=== PATIENT | male | born 1980 | race Caucasian/White ===

== ENCOUNTER 2017-08-27 18:07 | Emergency (ER) | payer OTHER ==
[~2017-08-27] VITALS: Ht 165.1 cm; Wt 70.3 kg
[2017-08-27 18:47] LABS: INFLUENZA A ANTIGEN None Detected (None Detect); INFLUENZA B ANTIGEN None Detected (None Detect)
[2017-08-27 18:55] LABS: HEMOGLOBIN 15.9 gm/dL (14.0-18.0); MCH 30.4 pg (26.0-34.0); MCHC 34.6 g/dL (28.0-37.0); MCV 87.8 fL (80.0-100.0); MPV 8.9 fl. (7.2-11.1); NUCLEATED RBCS 0 /100WBC; PLATELET COUNT* 156 thou/uL (150-400); RBC 5.25 mil/uL (4.50-6.00); RDW-CV 12.8 % (10.5-14.5); WBC 7.7 thou/uL (4.0-11.0)
[2017-08-27 18:59] LABS: CALCIUM 9.2 mg/dL (8.5-10.1); CREATININE 1.2 mg/dL (0.6-1.3); POTASSIUM 3.4 mmol/L (3.5-5.1)
[2017-08-27 19:04] LABS: ALBUMIN 4.3 g/dL (3.4-5.0); TOTAL BILIRUBIN 0.7 mg/dL (<0.1-1.0); TOTAL PROTEIN 7.5 g/dL (6.4-8.2)
[2017-08-27 19:17] LABS: ABSOLUTE LYMPHOCYTES 0.2 thou/uL (0.8-5.3); ABSOLUTE MONOCYTES 0.4 thou/uL (0.0-1.2); ABSOLUTE NEUTROPHILS 7.1 thou/uL (1.6-8.1)
[2017-08-27 19:18] LABS: LARGE PLATELETS RARE; PLATELET ESTIMATE ADEQUATE
[2017-08-27] MEDS ORDERED: ZOFRAN4 MG PO (19:53)
[2017-08-27] MEDS ORDERED: PROAIR HFA8.5 GM INH (19:54)
[2017-08-27 20:05] VITALS: BP 109/44
== END 2017-08-27 20:06 | disposition home or self-care (01) ==
LOC: M.ERS 18:07
PROVIDERS: Nurse Practitioner Family
DX: B34.9 Viral infection, unspecified (principal); Z90.49 Acquired absence of other specified parts of digestive tract

== ENCOUNTER 2020-02-15 18:05 | Observation (INO) | payer OTHER ==
[~2020-02-15] VITALS: Ht 167.6 cm; Wt 77.6 kg
[~2020-02-15 18:05] MED LIST: PROAIR HFA8.5 GM INH; ZOFRAN4 MG PO
[2020-02-15 18:17] VITALS: BP 135/81
[2020-02-15] MEDS ORDERED: BACTRIM DS TAB1 EAC1 PO (18:23)
[2020-02-15] MEDS ORDERED: DORYX MPC120 MG PO (18:23)
[2020-02-15 18:55] LABS: ABSOLUTE BASOPHILS 0.1 thou/uL (0.0-0.2); ABSOLUTE EOSINOPHILS 0.1 thou/uL (0.0-0.7); ABSOLUTE LYMPHOCYTES 1.1 thou/uL (0.8-5.3); ABSOLUTE MONOCYTES 0.8 thou/uL (0.0-1.2); ABSOLUTE NEUTROPHILS 8.9 thou/uL (1.6-8.1); BASOPHILS 0.6 %; EOSINOPHILS 0.6 %; HEMATOCRIT 45.5 % (42.0-52.0); HEMOGLOBIN 16.1 gm/dL (14.0-18.0); MCH 32.4 pg (26.0-34.0); MCHC 35.4 g/dL (28.0-37.0); MCV 91.5 fL (80.0-100.0); MONOCYTES 7.4 %; MPV 8.3 fl. (7.2-11.1); NUCLEATED RBCS 0 /100WBC; PLATELET COUNT* 199 thou/uL (150-400); POLYS 81.4 %; RBC 4.97 mil/uL (4.50-6.00)
[2020-02-15 19:07] LABS: CALCIUM 9.1 mg/dL (8.5-10.1); CREATININE 1.1 mg/dL (0.6-1.3); POTASSIUM 3.6 mmol/L (3.5-5.1)
[2020-02-15 19:10] LABS: ALBUMIN 3.3 g/dL (3.4-5.0); TOTAL BILIRUBIN 0.5 mg/dL (<0.1-1.0); TOTAL PROTEIN 7.6 g/dL (6.4-8.2)
[2020-02-15 20:33] VITALS: BP 109/55
[2020-02-15 21:00] VITALS: BP 125/70
--- NOTE | 2020-02-16 06:47 | NUR ---
Admit to floor at 2030. He has a large rt buttocks abscess. It was attempted to be lanced by urgent care. Picture was taken and placed in the chart. He has had pain throughout the shift,rating 8-9. He has been mostly awake all night.
[2020-02-16 08:50] VITALS: BP 108/55
[2020-02-16 09:12] VITALS: BP 125/70
--- NOTE | 2020-02-16 12:20 | NUR ---
PATIENT ARRIVED BACK TO ROOM FROM PACU AT 1215. ALERT AND ORIENTED X 4. VITAL SIGNS STABLE ON ROOM AIR. AFEBRILE. DR. JOANNE GONZALEZ'ED PATIENT TO GO HOME. WAITING FOR PATIENT TO EAT LUNCH AND PEE BEFORE DISCHARGE. NURSING WILL CONTINUE TO MONITOR.
[2020-02-16] MEDS ORDERED: LORCET 5-325 M1 EACH PO (14:10)
[2020-02-16 14:17] VITALS: BP 125/70
[2020-02-16 14:21] VITALS: BP 125/70
--- NOTE | 2020-02-16 15:25 | NUR ---
PATIENT DISCHARGED FROM UNIT AT 1500. ALERT AND ORIENTED X 4. AFEBRILE. TOLERATED LUNCH. IV DISCONTINUED. DENIES PAIN AND NAUSEA AT THIS TIME. DRESSING TO RIGHT BUTTOCK C/D/I. MEDICATION INFORMATION, SCRIPT, AND DISCHARGE INSTRUCTIONS GIVEN TO PATIENT. INSTRUCTED PATIENT ON DRESSING CHANGES. LEFT WITH ALL BELONGINGS. PATIENT LEFT WITH MOTHER VIA CAR.
[2020-02-16 15:32] VITALS: BP 125/70
[2020-02-17] MEDS ORDERED: BACTRIM DS TAB1 EACH PO (15:55)
[2020-02-17] MEDS ORDERED: DOXYCYCLINE 10100 MG PO (15:55)
--- NOTE | 2020-02-20 13:14 | OP ---
[address] [address] OPERATIVE REPORT Name: BANDAR MA Room: [address] Agustin Emerson#: [id number] Admission: 02/15/20 Attend Phys: Zach Noel MD Discharge: 02/16/20 Date of : 78 Report #: [id number] THIS REPORT FOR: //name// cc: ROULA Nam family physician/PCP ROULA Nam family physician/PCP ~ THIS REPORT FOR: //name// CC: ROULA physician/PCP Zach Noel DATE OF SERVICE: 02/16/2020 PREOPERATIVE DIAGNOSIS: Right buttock abscess. POSTOPERATIVE DIAGNOSIS: Right buttock abscess. OPERATION: Incision and drainage of right buttock abscess. SURGEON: Casey Bain MD. ANESTHESIA: General. ESTIMATED BLOOD LOSS: Minimal. SPECIMEN: None. DESCRIPTION OF PROCEDURE: After informed consent was obtained, the patient was brought to the operating room and placed supine. SCDs were placed and working, the patient was placed in the left lateral decubitus position after general anesthesia was induced. The right buttock was prepped and draped in the usual sterile fashion. A 4 x 3 cm elliptical incision was made. Immediately, there was a nice of approximately 50 mL of pus. A 3 x 4 cm piece of skin was removed with cautery. This looked to be an infected sebaceous cyst as there were cystic fragments. This was all excised. The area was then copiously irrigated with normal saline. The wound was then packed with sterile gauze. Sterile dressings were applied. COMPLICATIONS: None. DISPOSITION: The patient was taken to recovery in satisfactory condition. <ELECTRONICALLY SIGNED> By: Casey Bain MD 02/20/20 1314 [id number] Bain MD /nt
== END 2020-02-16 15:00 | disposition home or self-care (01) ==
LOC: M.ERS 18:05 → M.TBA-ER 18:37 → M.ORTHSURG 20:36
PROVIDERS: Physician Assistant; ADMIT Surgery; ATTEND Surgery
DX: L02.31 Cutaneous abscess of buttock (principal); F17.210 Nicotine dependence, cigarettes, uncomplicated

== ENCOUNTER 2020-02-17 12:30 | Emergency (ER) | payer OTHER ==
[~2020-02-17] VITALS: Ht 167.6 cm; Wt 77.6 kg
[~2020-02-17 12:30] MED LIST changes: +BACTRIM DS TAB1 EAC1 PO; +DORYX MPC120 MG PO; +LORCET 5-325 M1 EACH PO
[2020-02-17 13:44] LABS: ABSOLUTE EOSINOPHILS 0.1 thou/uL (0.0-0.7); ABSOLUTE LYMPHOCYTES 1.6 thou/uL (0.8-5.3); ABSOLUTE MONOCYTES 0.7 thou/uL (0.0-1.2); BASOPHILS 0.5 %; EOSINOPHILS 0.6 %; HEMOGLOBIN 14.3 gm/dL (14.0-18.0); LYMPHOCYTES 15.2 %; MCH 31.9 pg (26.0-34.0); MCHC 34.8 g/dL (28.0-37.0); MCV 91.6 fL (80.0-100.0); MONOCYTES 6.8 %; MPV 7.9 fl. (7.2-11.1); NUCLEATED RBCS 0 /100WBC; PLATELET COUNT* 227 thou/uL (150-400); POLYS 76.9 %; RBC 4.48 mil/uL (4.50-6.00); RDW-CV 12.7 % (10.5-14.5); WBC 10.4 thou/uL (4.0-11.0)
[2020-02-17 13:53] LABS: CALCIUM 8.7 mg/dL (8.5-10.1); POTASSIUM 3.3 mmol/L (3.5-5.1)
[2020-02-17 13:58] LABS: ALBUMIN 3.2 g/dL (3.4-5.0); TOTAL BILIRUBIN 0.4 mg/dL (<0.1-1.0)
[2020-02-17] MEDS ORDERED: BACTRIM DS TAB1 EACH PO (15:55)
[2020-02-17] MEDS ORDERED: DOXYCYCLINE 10100 MG PO (15:55)
[2020-02-17 16:06] VITALS: BP 139/80
== END 2020-02-17 16:07 | disposition home or self-care (01) ==
LOC: M.ERS 12:30
PROVIDERS: Nurse Practitioner Family
DX: L03.317 Cellulitis of buttock (principal); F17.210 Nicotine dependence, cigarettes, uncomplicated; Z90.49 Acquired absence of other specified parts of digestive tract